=== PATIENT | male | born 1990 | race Caucasian/White ===

== ENCOUNTER 2020-07-30 15:20 | Outpatient (CLI) | payer SELFPAY ==
--- NOTE | 2020-07-30 15:38 | USCV_ITS ---
Shane Rey Age: 30 Gender: M : 1990 Exam Date: 07/30/2020 15:47 Ordering Phys: Lilliana Singleton Technologist: Katty Sears Exam Location: [facility] [place] Indication: RIGHT EXTREMITY PAIN HISTORY: Lower extremity pain. PROCEDURES: Venous duplex imaging was performed in only the right lower extremity. The following venous structures were evaluated: common femoral vein, profunda vein, proximal portion of the greater saphenous vein, superficial femoral vein, and the popliteal vein. In addition, the posterior tibial and peroneal trunk were evaluated. Serial compression, augmentation maneuvers, and spectral Doppler flow evaluation were performed. FINDINGS: Normal 2-D Doppler and augmentation and compressibility throughout the lower extremity venous structures. Additional imaging through the proximal calf veins also reveals no thrombus. Limited evaluation of the greater saphenous vein is patent with no thrombus.. CONCLUSIONS No evidence of right lower extremity DVT. Jae Aguilar MD (Electronically Signed) Final Date: 30 July 2020 17:37 S
== END 2020-07-30 15:21 | disposition home or self-care (01) ==
LOC: RAD 15:26
PROVIDERS: PCP Nurse Practitioner Family; Visit Provider Nurse Practitioner Family
DX: M79.604 Pain in right leg (principal)
CPT/HCPCS: 93971